=== PATIENT | female | born 1950 | race Caucasian/White ===

== ENCOUNTER 2016-10-27 16:13 | Emergency (ER) | payer MEDICARE, MEDICAID ==
[~2016-10-27] VITALS: Ht 170.2 cm; Wt 68.4 kg
[~2016-10-27 16:13] MED LIST: ACCUPRIL20 MG OR; ALBUTEROL S2.5 MG/.5 NEB; ALDACTONE25 MG PO; ASPIRIN EC325 MG PO; ASPIRIN EC81 MG PO; AUGMENTIN875TAB PO; FUROSEMIDE20 MG PO; HYDROCHLORO25 MG/TAB PO; HYDROCHLOROT12.5 MG OR; K-DUR/KLOR-CON20 MEQ PO; LANOXIN0.25 MG PO; LASIX 40 MG TAB40 MG PO; LEVAQUIN750 MG PO; LEVOFLOXACIN250 M1 PO; LEVOTHYROXIN75 MCG OR; LISINOPRIL20 MG PO; LOPRESSOR 550 MG/TAB PO; LOPRESSOR25 MG PO; LOSARTAN POT50 MG PO; LOSARTAN POTASS25 MG PO; NAPROSYN375 MG PO; NAPROSYN500 MG PO; NICOTINE T21 MG/PATC TD; PANTOPRAZOLE SO40 M1 PO; PERCOCET 5/325M1 TAB PO; PREDNISONE10 MG PO; ROBITUSSIN AC10 ML PO
[2016-10-27 18:34] LABS: HEMATOCRIT 37.7 % (37.0-47.0); IMMATURE GRANULOCYTES 0.3 % (0.0-1.0); MEAN CELL VOLUME 96.9 fL CALC (80.0-100.0); MEAN CORPUSCULAR HGB 30.8 pG CALC (26.0-32.0); MEAN CORPUSCULAR HGB CONC 31.8 g/L CALC (32.0-36.0); NEUT# 10.21 thou/uL (2.00-7.15); RED BLOOD COUNT 3.89 mill/uL (4.20-5.60); RED CELL DISTRI WIDTH 13.1 % (11.5-15.5)
[2016-10-27 18:35] LABS: URINE BILIRUBIN - DIPSTICK NEGATIVE (NEGATIVE); URINE BLOOD DIPSTICK NEGATIVE (NEGATIVE); URINE CLARITY CLEAR; URINE COLOR YELLOW; URINE GLUCOSE - DIPSTICK NEGATIVE (NEGATIVE); URINE KETONE NEGATIVE (NEGATIVE); URINE NITRITE - DIPSTICK NEGATIVE (Negative); URINE PROTEIN - DIPSTICK NEGATIVE (NEG-TRACE); URINE SPECIFIC GRAVITY 1.015; URINE UROBILINOGEN - DIPSTICK 0.2 E.U./dL (0.2)
[2016-10-27 18:40] LABS: ACT PARTIAL THROMBO TIME 26.8 SECONDS (20.0-32.5); PROTHROMBIN TIME 10.8 SECONDS (9.0-12.5)
[2016-10-27 18:40] LABS: URINE LEUK ESTERASE SMALL (NEGATIVE)
[2016-10-27 18:48] LABS: URINE SQUAMOUS EPITHELIAL CELL FEW EPI/hpf (0-FEW)
[2016-10-27 18:49] LABS: ALBUMIN 4.1 g/dL (3.2-5.0); ALKALINE PHOSPHATASE 73 u/l (38-126); ANION GAP 14 (6-22 (CALC)); BILIRUBIN, TOTAL 0.4 mg/dL (0.0-1.4); BUN 8 mg/dL (8-23); BUN/CREATININE RATIO 12 (12-20 (CALC)); CALCIUM 9.4 mg/dL (8.4-10.2); CARBON DIOXIDE 30 mmol/l (22-30); CHLORIDE 102 mmol/l (95-108); CREATININE 0.6 mg/dL (0.5-1.0); GFR > 60 ML/MIN (>=60 (CALC)); GFR FOR AFR.AMER. > 60 ML/MIN (>=60 (CALC)); GLUCOSE 97 mg/dL (82-115); POTASSIUM 3.6 mmol/l (3.5-5.1); SGOT/AST 20 u/l (9-36); SGPT/ALT 20 u/l (11-66); SODIUM 142 mmol/l (137-146)
[2016-10-27 19:02] LABS: MYOGLOBIN 25 ng/mL (0 - 62)
[2016-10-27 20:34] VITALS: BP 164/78
[2016-10-28] MEDS ORDERED: LISINOP/HCTZ1 TA1 PO (12:46)
[2016-10-28] MEDS ORDERED: CIPROFLOXACN500 MG PO (12:46)
== END 2016-10-27 20:35 | disposition left against medical advice (07) ==
LOC: ED 16:13
PROVIDERS: Emergency Medicine
DX: I11.0 Hypertensive heart disease with heart failure (principal); I50.9 Heart failure, unspecified; I25.2 Old myocardial infarction; J44.9 Chronic obstructive pulmonary disease, unspecified; I48.91 Unspecified atrial fibrillation; F17.210 Nicotine dependence, cigarettes, uncomplicated; R07.9 Chest pain, unspecified; R51 Headache

== ENCOUNTER 2016-10-28 12:03 | Emergency (ER) | payer MEDICARE, MEDICAID ==
[~2016-10-28] VITALS: Ht 170.2 cm; Wt 68.0 kg
[2016-10-28] MEDS ORDERED: LISINOP/HCTZ1 TA1 PO (12:46)
[2016-10-28] MEDS ORDERED: CIPROFLOXACN500 MG PO (12:46)
[2016-10-28 12:56] VITALS: BP 162/82
== END 2016-10-28 13:01 | disposition home or self-care (01) ==
LOC: ED 12:03
DX: I10 Essential (primary) hypertension (principal); N39.0 Urinary tract infection, site not specified

== ENCOUNTER 2017-12-29 11:50 | Inpatient (IN) | payer MEDICARE, MEDICAID ==
[~2017-12-29] VITALS: Ht 170.2 cm; Wt 72.8 kg
[2017-12-29] VITALS (11 sets, daily range): BP systolic 120–168; BP diastolic 61–104
[~2017-12-29 11:50] MED LIST changes: +CIPROFLOXACN500 MG PO; +LISINOP/HCTZ1 TA1 PO
[2017-12-29 12:26] LABS: HEMATOCRIT 38.5 % (37.0-47.0); HEMOGLOBIN 12.1 g/dl (12.0-16.0); IMMATURE GRANULOCYTES 0.4 % (0.0-1.0); MEAN CELL VOLUME 94.6 fL CALC (80.0-100.0); MEAN CORPUSCULAR HGB 29.7 pG CALC (26.0-32.0); MEAN CORPUSCULAR HGB CONC 31.4 g/L CALC (32.0-36.0); NEUT# 12.4 thou/uL (2.00-7.15); RED BLOOD COUNT 4.07 mill/uL (4.20-5.60); RED CELL DISTRI WIDTH 13.5 % (11.5-15.5)
[2017-12-29 12:36] LABS: ALBUMIN 3.8 g/dL (3.2-5.0); ALKALINE PHOSPHATASE 108 u/l (38-126); BILIRUBIN, TOTAL 1.2 mg/dL (0.0-1.4); BUN 16 mg/dL (8-23); CARBON DIOXIDE 28 mmol/l (22-30); CHLORIDE 101 mmol/l (95-108); SGPT/ALT 872 u/l (11-66); SODIUM 139 mmol/l (137-146); TOTAL PROTEIN 7.6 g/dL (6.3-8.2)
[2017-12-29 12:38] LABS: ANION GAP 14 (6-22 (CALC)); BUN/CREATININE RATIO 27 (12-20 (CALC)); CREATININE 0.6 mg/dL (0.5-1.0); GFR > 60 ML/MIN (>=60 (CALC)); GFR FOR AFR.AMER. > 60 ML/MIN (>=60 (CALC)); POTASSIUM 4.4 mmol/l (3.5-5.1)
[2017-12-29 12:53] LABS: SGOT/AST 1153 u/l (9-36)
[2017-12-29] MEDS ORDERED: ACETAMINOPHEN500 M1 PO (15:43)
[2017-12-29] MEDS ORDERED: [UNRECOGNIZED DRUG - REMARK] PO (15:50)
[2017-12-29] MEDS ORDERED: HAIR SKIN AND N1 TAB PO (15:55)
[2017-12-29] MEDS ORDERED: BC HEADACH1 PO (16:00)
[2017-12-30] VITALS (13 sets, daily range): BP systolic 111–177; BP diastolic 59–85
[2017-12-30 06:00] LABS: HEMATOCRIT 37.8 % (37.0-47.0); HEMOGLOBIN 11.8 g/dl (12.0-16.0); MEAN CELL VOLUME 95.7 fL CALC (80.0-100.0); MEAN CORPUSCULAR HGB 29.9 pG CALC (26.0-32.0); MEAN CORPUSCULAR HGB CONC 31.2 g/L CALC (32.0-36.0); RED BLOOD COUNT 3.95 mill/uL (4.20-5.60); RED CELL DISTRI WIDTH 13.4 % (11.5-15.5)
[2017-12-30 06:13] LABS: ALBUMIN 3.6 g/dL (3.2-5.0); ALKALINE PHOSPHATASE 96 u/l (38-126); ANION GAP 13 (6-22 (CALC)); BILIRUBIN, TOTAL 0.5 mg/dL (0.0-1.4); BUN 18 mg/dL (8-23); BUN/CREATININE RATIO 27 (12-20 (CALC)); CARBON DIOXIDE 28 mmol/l (22-30); CHLORIDE 101 mmol/l (95-108); CREATININE 0.7 mg/dL (0.5-1.0); GFR > 60 ML/MIN (>=60 (CALC)); GFR FOR AFR.AMER. > 60 ML/MIN (>=60 (CALC)); POTASSIUM 4.4 mmol/l (3.5-5.1); SGOT/AST 678 u/l (9-36); SGPT/ALT 783 u/l (11-66); SODIUM 137 mmol/l (137-146); TOTAL PROTEIN 6.9 g/dL (6.3-8.2)
[2017-12-30 13:56] LABS: BARBITURATES NEGATIVE (NEGATIVE); COCAINE NEGATIVE (NEGATIVE); METHADONE NEGATIVE (NEGATIVE); OXCYCODONE NEGATIVE (NEGATIVE); TETRAHYDROCANNABIONOL NEGATIVE (NEGATIVE); TRICYLIC ANTIDEPRESSANTS NEGATIVE (NEGATIVE)
[2017-12-31] VITALS (8 sets, daily range): BP systolic 129–171; BP diastolic 78–98
[2017-12-31 05:35] LABS: CREATININE 1.1 mg/dL (0.5-1.0); POTASSIUM 4.1 mmol/l (3.5-5.1)
[2017-12-31 06:01] LABS: HEMATOCRIT 37.9 % (37.0-47.0); HEMOGLOBIN 11.6 g/dl (12.0-16.0); MEAN CELL VOLUME 97.9 fL CALC (80.0-100.0); MEAN CORPUSCULAR HGB CONC 30.6 g/L CALC (32.0-36.0); RED BLOOD COUNT 3.87 mill/uL (4.20-5.60); RED CELL DISTRI WIDTH 13.7 % (11.5-15.5)
[2017-12-31 07:03] LABS: ALBUMIN 3.4 g/dL (3.2-5.0); BILIRUBIN, TOTAL 0.5 mg/dL (0.0-1.4); TOTAL PROTEIN 6.7 g/dL (6.3-8.2)
== END 2017-12-31 15:52 | disposition left against medical advice (07) | DRG 193 ==
LOC: ED 11:50 → ED-I 13:53 → ED 17:23 → ED-I 17:24 → ICU 17:24 → ED-I 22:21 → ICU 12-30 06:06
PROVIDERS: Emergency Medicine; ADMIT Internal Medicine; ATTEND Internal Medicine
PROC: 3E0234Z Introduction of Serum, Toxoid and Vaccine into Muscle, Percutaneous Approach (ICD-10-PCS; principal; 2017-12-30)
DX: J18.9 Pneumonia, unspecified organism (principal); J96.21 Acute and chronic respiratory failure with hypoxia; J96.22 Acute and chronic respiratory failure with hypercapnia; J44.0 Chronic obstructive pulmonary disease with (acute) lower respiratory infection; I42.9 Cardiomyopathy, unspecified; J44.1 Chronic obstructive pulmonary disease with (acute) exacerbation; I11.0 Hypertensive heart disease with heart failure; I50.9 Heart failure, unspecified; I25.10 Atherosclerotic heart disease of native coronary artery without angina pectoris; T39.1X1A Poisoning by 4-Aminophenol derivatives, accidental (unintentional), initial encounter; K71.10 Toxic liver disease with hepatic necrosis, without coma; I48.2 Chronic atrial fibrillation; F10.10 Alcohol abuse, uncomplicated; F17.210 Nicotine dependence, cigarettes, uncomplicated; I25.2 Old myocardial infarction; M19.90 Unspecified osteoarthritis, unspecified site; Z23 Encounter for immunization; Z90.2 Acquired absence of lung [part of]; Z91.14 Patient's other noncompliance with medication regimen
CPT/HCPCS: J1650

== ENCOUNTER 2018-01-02 21:36 | Inpatient (IN) | payer MEDICARE, MEDICAID ==
[~2018-01-02] VITALS: Ht 170.2 cm; Wt 70.4 kg
[~2018-01-02 21:36] MED LIST changes: +ACETAMINOPHEN500 M1 PO; +BC HEADACH1 PO; +HAIR SKIN AND N1 TAB PO; +[UNRECOGNIZED DRUG - REMARK] PO
[2018-01-02 22:12] LABS: HEMATOCRIT 39.8 % (37.0-47.0); IMMATURE GRANULOCYTES 0.8 % (0.0-1.0); MEAN CELL VOLUME 97.5 fL CALC (80.0-100.0); MEAN CORPUSCULAR HGB 29.4 pG CALC (26.0-32.0); MEAN CORPUSCULAR HGB CONC 30.2 g/L CALC (32.0-36.0); NEUT# 14.12 thou/uL (2.00-7.15); RED BLOOD COUNT 4.08 mill/uL (4.20-5.60); RED CELL DISTRI WIDTH 14.6 % (11.5-15.5)
[2018-01-02 23:01] LABS: ALBUMIN 3.9 g/dL (3.2-5.0); ALKALINE PHOSPHATASE 139 u/l (38-126); ANION GAP 14 (6-22 (CALC)); BILIRUBIN, TOTAL 0.6 mg/dL (0.0-1.4); BUN 24 mg/dL (8-23); BUN/CREATININE RATIO 29 (12-20 (CALC)); CARBON DIOXIDE 28 mmol/l (22-30); CHLORIDE 102 mmol/l (95-108); CREATININE 0.8 mg/dL (0.5-1.0); GFR > 60 ML/MIN (>=60 (CALC)); GFR FOR AFR.AMER. > 60 ML/MIN (>=60 (CALC)); POTASSIUM 3.6 mmol/l (3.5-5.1); SGOT/AST 92 u/l (9-36); SGPT/ALT 351 u/l (11-66); SODIUM 141 mmol/l (137-146); TOTAL PROTEIN 7.6 g/dL (6.3-8.2)
[2018-01-02 23:13] LABS: MYOGLOBIN 50 ng/mL (0 - 62)
[2018-01-02 23:14] LABS: URINE BILIRUBIN - DIPSTICK NEGATIVE (NEGATIVE); URINE BLOOD DIPSTICK NEGATIVE (NEGATIVE); URINE CLARITY CLEAR; URINE COLOR COLORLESS; URINE GLUCOSE - DIPSTICK NEGATIVE (NEGATIVE); URINE KETONE NEGATIVE (NEGATIVE); URINE LEUK ESTERASE NEGATIVE (NEGATIVE); URINE NITRITE - DIPSTICK NEGATIVE (Negative); URINE PROTEIN - DIPSTICK NEGATIVE (NEG-TRACE); URINE SPECIFIC GRAVITY <=1.005; URINE UROBILINOGEN - DIPSTICK 0.2 E.U./dL (0.2)
[2018-01-02 23:18] LABS: BARBITURATES NEGATIVE (NEGATIVE); COCAINE NEGATIVE (NEGATIVE); METHADONE NEGATIVE (NEGATIVE); OXCYCODONE NEGATIVE (NEGATIVE); TETRAHYDROCANNABIONOL NEGATIVE (NEGATIVE); TRICYLIC ANTIDEPRESSANTS NEGATIVE (NEGATIVE)
[2018-01-03] VITALS (18 sets, daily range): BP systolic 138–197; BP diastolic 68–100
[2018-01-04] VITALS (7 sets, daily range): BP systolic 122–156; BP diastolic 67–98
[2018-01-04 05:01] LABS: HEMATOCRIT 43.7 % (37.0-47.0); HEMOGLOBIN 13.7 g/dl (12.0-16.0); MEAN CELL VOLUME 93.4 fL CALC (80.0-100.0); MEAN CORPUSCULAR HGB 29.3 pG CALC (26.0-32.0); MEAN CORPUSCULAR HGB CONC 31.4 g/L CALC (32.0-36.0); RED BLOOD COUNT 4.68 mill/uL (4.20-5.60); RED CELL DISTRI WIDTH 14.2 % (11.5-15.5)
[2018-01-04 05:42] LABS: ALBUMIN 3.3 g/dL (3.2-5.0); ALKALINE PHOSPHATASE 118 u/l (38-126); BILIRUBIN, TOTAL 0.5 mg/dL (0.0-1.4); BUN 29 mg/dL (8-23); BUN/CREATININE RATIO 32 (12-20 (CALC)); CREATININE 0.9 mg/dL (0.5-1.0); GFR > 60 ML/MIN (>=60 (CALC)); GFR FOR AFR.AMER. > 60 ML/MIN (>=60 (CALC)); SGOT/AST 42 u/l (9-36); SGPT/ALT 218 u/l (11-66); SODIUM 138 mmol/l (137-146); TOTAL PROTEIN 6.5 g/dL (6.3-8.2)
[2018-01-04 05:49] LABS: MAGNESIUM 1.1 mg/dL (1.6-2.3)
[2018-01-04 06:05] LABS: POTASSIUM 2.6 mmol/l (3.5-5.1)
[2018-01-04 06:06] LABS: ANION GAP 12 (6-22 (CALC)); CARBON DIOXIDE 50 mmol/l (22-30); CHLORIDE 79 mmol/l (95-108)
[2018-01-04 07:01] LABS: BUN 31 mg/dL (8-23); BUN/CREATININE RATIO 34 (12-20 (CALC)); CHLORIDE 80 mmol/l (95-108); CREATININE 0.9 mg/dL (0.5-1.0); GFR > 60 ML/MIN (>=60 (CALC)); GFR FOR AFR.AMER. > 60 ML/MIN (>=60 (CALC)); POTASSIUM 2.8 mmol/l (3.5-5.1); SODIUM 138 mmol/l (137-146)
[2018-01-04 07:08] LABS: ANION GAP 15 (6-22 (CALC))
[2018-01-04 07:18] LABS: CARBON DIOXIDE 46 mmol/l (22-30)
[2018-01-05] VITALS (9 sets, daily range): BP systolic 147–211; BP diastolic 72–134
[2018-01-05 07:02] LABS: HEMATOCRIT 42.6 % (37.0-47.0); HEMOGLOBIN 13.3 g/dl (12.0-16.0); MEAN CELL VOLUME 94.7 fL CALC (80.0-100.0); MEAN CORPUSCULAR HGB 29.6 pG CALC (26.0-32.0); MEAN CORPUSCULAR HGB CONC 31.2 g/L CALC (32.0-36.0); RED BLOOD COUNT 4.5 mill/uL (4.20-5.60); RED CELL DISTRI WIDTH 14.4 % (11.5-15.5)
[2018-01-05 07:13] LABS: BUN 26 mg/dL (8-23); BUN/CREATININE RATIO 39 (12-20 (CALC)); CHLORIDE 85 mmol/l (95-108); CREATININE 0.7 mg/dL (0.5-1.0); GFR > 60 ML/MIN (>=60 (CALC)); GFR FOR AFR.AMER. > 60 ML/MIN (>=60 (CALC)); POTASSIUM 2.6 mmol/l (3.5-5.1); SODIUM 139 mmol/l (137-146)
[2018-01-05 07:21] LABS: MAGNESIUM 1.6 mg/dL (1.6-2.3)
[2018-01-05 07:22] LABS: ANION GAP 16 (6-22 (CALC)); CARBON DIOXIDE 41 mmol/l (22-30)
[2018-01-05 13:31] LABS: POTASSIUM 3.2 mmol/l (3.5-5.1)
[2018-01-06] VITALS (15 sets, daily range): BP systolic 133–179; BP diastolic 62–114
[2018-01-06 05:07] LABS: HEMATOCRIT 47.5 % (37.0-47.0); MEAN CELL VOLUME 94.1 fL CALC (80.0-100.0); MEAN CORPUSCULAR HGB 29.7 pG CALC (26.0-32.0); MEAN CORPUSCULAR HGB CONC 31.6 g/L CALC (32.0-36.0); RED BLOOD COUNT 5.05 mill/uL (4.20-5.60); RED CELL DISTRI WIDTH 14.3 % (11.5-15.5)
[2018-01-06 05:22] LABS: BUN 22 mg/dL (8-23); BUN/CREATININE RATIO 35 (12-20 (CALC)); CHLORIDE 88 mmol/l (95-108); CREATININE 0.6 mg/dL (0.5-1.0); GFR > 60 ML/MIN (>=60 (CALC)); GFR FOR AFR.AMER. > 60 ML/MIN (>=60 (CALC)); MAGNESIUM 1.6 mg/dL (1.6-2.3); POTASSIUM 3.1 mmol/l (3.5-5.1); SODIUM 139 mmol/l (137-146)
[2018-01-06 05:29] LABS: ANION GAP 15 (6-22 (CALC)); CARBON DIOXIDE 39 mmol/l (22-30)
[2018-01-06 17:02] LABS: HEMATOCRIT 47.9 % (37.0-47.0); HEMOGLOBIN 14.5 g/dl (12.0-16.0); MEAN CORPUSCULAR HGB 29.1 pG CALC (26.0-32.0); MEAN CORPUSCULAR HGB CONC 30.3 g/L CALC (32.0-36.0); RED BLOOD COUNT 4.99 mill/uL (4.20-5.60); RED CELL DISTRI WIDTH 14.5 % (11.5-15.5)
[2018-01-07 00:25] VITALS: BP 156/91
[2018-01-07 02:25] VITALS: BP 109/69
[2018-01-07 04:23] VITALS: BP 136/78
[2018-01-07 05:11] LABS: HEMATOCRIT 49.4 % (37.0-47.0); HEMOGLOBIN 15.3 g/dl (12.0-16.0); MEAN CORPUSCULAR HGB 29.4 pG CALC (26.0-32.0); RED BLOOD COUNT 5.2 mill/uL (4.20-5.60); RED CELL DISTRI WIDTH 14.4 % (11.5-15.5)
[2018-01-07 05:28] LABS: ALBUMIN 3.2 g/dL (3.2-5.0); ALKALINE PHOSPHATASE 146 u/l (38-126); BILIRUBIN, TOTAL 0.4 mg/dL (0.0-1.4); BUN 22 mg/dL (8-23); BUN/CREATININE RATIO 32 (12-20 (CALC)); CHLORIDE 89 mmol/l (95-108); CREATININE 0.7 mg/dL (0.5-1.0); GFR > 60 ML/MIN (>=60 (CALC)); GFR FOR AFR.AMER. > 60 ML/MIN (>=60 (CALC)); MAGNESIUM 1.2 mg/dL (1.6-2.3); POTASSIUM 3.2 mmol/l (3.5-5.1); SGOT/AST 19 u/l (9-36); SGPT/ALT 86 u/l (11-66); SODIUM 137 mmol/l (137-146); TOTAL PROTEIN 6.3 g/dL (6.3-8.2)
[2018-01-07 05:29] LABS: ANION GAP 11 (6-22 (CALC))
[2018-01-07 05:30] LABS: CARBON DIOXIDE 40 mmol/l (22-30)
[2018-01-07 06:56] VITALS: BP 153/87
[2018-01-07 09:21] VITALS: BP 162/78
[2018-01-07] MEDS ORDERED: PREDNISONE10 MG PO (11:05)
[2018-01-07] MEDS ORDERED: ASPIRIN EC325 MG PO (11:05)
[2018-01-07] MEDS ORDERED: ATENOLOL50 MG PO (11:05)
[2018-01-07] MEDS ORDERED: LASIX 40 MG40 MG/TAB PO (11:05)
[2018-01-07] MEDS ORDERED: ATORVASTATIN CA10 MG PO (11:05)
[2018-01-07] MEDS ORDERED: IPRATROPIU0.5 MG/3 M IN (11:05)
[2018-01-07] MEDS ORDERED: K-DUR/KLOR-CON20 MEQ PO (11:05)
[2018-01-07] MEDS ORDERED: LISINOPRIL20 M1 PO (11:05)
[2018-01-07] MEDS ORDERED: DOXYCYCL HYC100 MG PO (11:22)
[2018-01-07] MEDS ORDERED: PROAIR HFA108 MCG/AC IN (11:30)
[2018-01-07] MEDS ORDERED: RESTORIL15 MG PO (11:30)
[2018-01-07 13:03] VITALS: BP 148/70
== END 2018-01-07 13:22 | disposition home or self-care (01) | DRG 291 ==
LOC: ED 21:36 → ED-I 22:56 → ED 01-03 00:08 → ICU 01-03 00:09
PROVIDERS: Emergency Medicine; ADMIT Internal Medicine; ATTEND Internal Medicine
PROC: 0T9B70Z Drainage of Bladder with Drainage Device, Via Natural or Artificial Opening (ICD-10-PCS; principal; 2018-01-02)
DX: I11.0 Hypertensive heart disease with heart failure (principal); J18.9 Pneumonia, unspecified organism; J96.21 Acute and chronic respiratory failure with hypoxia; J96.22 Acute and chronic respiratory failure with hypercapnia; J44.0 Chronic obstructive pulmonary disease with (acute) lower respiratory infection; J44.1 Chronic obstructive pulmonary disease with (acute) exacerbation; E87.3 Alkalosis; I50.23 Acute on chronic systolic (congestive) heart failure; I48.2 Chronic atrial fibrillation; E87.6 Hypokalemia; E83.42 Hypomagnesemia; R73.9 Hyperglycemia, unspecified; T38.0X5A Adverse effect of glucocorticoids and synthetic analogues, initial encounter; I42.9 Cardiomyopathy, unspecified; F17.210 Nicotine dependence, cigarettes, uncomplicated; M19.90 Unspecified osteoarthritis, unspecified site; Z91.14 Patient's other noncompliance with medication regimen; Z90.2 Acquired absence of lung [part of]
CPT/HCPCS: J1650; J2060; J3475

== ENCOUNTER 2018-04-07 21:58 | Inpatient (IN) | payer MEDICARE, MEDICAID ==
[~2018-04-07] VITALS: Ht 165.1 cm; Wt 64.0 kg
[~2018-04-07 21:58] MED LIST changes: +ATENOLOL50 MG PO; +ATORVASTATIN CA10 MG PO; +DOXYCYCL HYC100 MG PO; +IPRATROPIU0.5 MG/3 M IN; +LASIX 40 MG40 MG/TAB PO; +LISINOPRIL20 M1 PO; +PROAIR HFA108 MCG/AC IN; +RESTORIL15 MG PO
--- NOTE | 2018-04-07 21:58 | NUR ---
TAKEN TO ROOM VIA W/C. PT SOB WHILE IN W/C. RR 50
[2018-04-07 22:45] LABS: HEMATOCRIT 48.2 % (37.0-47.0); HEMOGLOBIN 15.4 g/dl (12.0-16.0); IMMATURE GRANULOCYTES 0.9 % (0.0-5.0); MEAN CELL VOLUME 89.6 fL CALC (80.0-100.0); MEAN CORPUSCULAR HGB 28.6 pG CALC (26.0-32.0); NEUT# 24.28 thou/uL (2.00-7.15); RED BLOOD COUNT 5.38 mill/uL (4.20-5.60); RED CELL DISTRI WIDTH 13.6 % (11.5-15.5)
[2018-04-07 23:03] LABS: ALKALINE PHOSPHATASE 141 u/l (38-126); ANION GAP 16 (6-22 (CALC)); BILIRUBIN, TOTAL 0.8 mg/dL (0.0-1.4); BUN 18 mg/dL (8-23); BUN/CREATININE RATIO 25 (12-20 (CALC)); CARBON DIOXIDE 32 mmol/l (22-30); CHLORIDE 95 mmol/l (95-108); CREATININE 0.7 mg/dL (0.5-1.0); GFR > 60 ML/MIN (>=60 (CALC)); GFR FOR AFR.AMER. > 60 ML/MIN (>=60 (CALC)); POTASSIUM 3.4 mmol/l (3.5-5.1); SGOT/AST 25 u/l (9-36); SODIUM 139 mmol/l (137-146)
[2018-04-07 23:07] LABS: ALBUMIN 3.9 g/dL (3.2-5.0); TOTAL PROTEIN 7.6 g/dL (6.3-8.2)
[2018-04-07 23:16] LABS: MYOGLOBIN 41 ng/mL (0 - 62)
[2018-04-07 23:20] LABS: URINE BILIRUBIN - DIPSTICK NEGATIVE (NEGATIVE); URINE BLOOD DIPSTICK TRACE-INTACT (NEGATIVE); URINE COLOR YELLOW; URINE GLUCOSE - DIPSTICK NEGATIVE (NEGATIVE); URINE KETONE NEGATIVE (NEGATIVE); URINE LEUK ESTERASE NEGATIVE (NEGATIVE); URINE NITRITE - DIPSTICK NEGATIVE (Negative); URINE PH 6.5 (4.5-8.0); URINE PROTEIN - DIPSTICK TRACE mg/dL (NEG-TRACE); URINE UROBILINOGEN - DIPSTICK 0.2 E.U./dL (0.2)
[2018-04-07 23:22] LABS: BARBITURATES NEGATIVE (NEGATIVE); COCAINE NEGATIVE (NEGATIVE); METHADONE NEGATIVE (NEGATIVE); OXCYCODONE NEGATIVE (NEGATIVE); TETRAHYDROCANNABIONOL NEGATIVE (NEGATIVE); TRICYLIC ANTIDEPRESSANTS NEGATIVE (NEGATIVE); URINE CLARITY CLEAR
--- NOTE | 2018-04-07 23:30 | NUR ---
PT RELATED BREATHING IMPROVED.
[2018-04-08] VITALS (18 sets, daily range): BP systolic 71–141; BP diastolic 41–88
--- NOTE | 2018-04-08 00:34 | NUR ---
CARDIZEM GTT INCREASED TO 10MG/HR PER DR LOUIS.
--- NOTE | 2018-04-08 01:00 | NUR ---
PT SLEEPING, RESPONDED TO VERBAL STIMULI. BREATHING IMPROVED. CALL [facility] IN REACH.
--- NOTE | 2018-04-08 02:45 | NUR ---
REPORT CALLED TO RENAE LAGOS
--- NOTE | 2018-04-08 02:50 | NUR ---
PT. ARRIVES VIA STRETCHER FROM ER. AMBULATORY FROM ER STRETCHER TO ICU BED WITHOUT ASSISTANCE. ZITHROMAX DRIP INFUSING AND CARDIZEM DRIP INFUSING AT 10CC/HR A-FIB IN THE 90-110'S ON ARRVAL. SPO2 IS 88% ON RA AFTER AMBULATION. SKIN WARM AND DRY. AFEBRILE. EXPLAINED CALL LIGHT AND PLAN OF CARE FOR TONIGHT. RESPS EVEN AND UNLABORED. LUNGS CTA. BP STABLE 130'S SYSTOLIC. PT. REPORTS LAST BM YESTERDAY, SEVERAL AND SOFT IN NATURE. DENIES PAIN. PT. PLACED BACK ON 2L VIA NC. STATES SHE CONTINUES TO SMOKE ABOUT 1 PPD. ALSO REPORTS OCCASIONAL METH USE WHEN SHE DOESN'T FEEL WELL. STATES LAST USE WAS 3 DAYS AGO. NO DISTRESS. WILL CONTINUE TO MONITOR.
--- NOTE | 2018-04-08 02:55 | NUR ---
PT TO ICU 3 VIA STRETCHER WITH MONITOR, IV PUMP, OXYGEN, RN. PT COND STABLE.
--- NOTE | 2018-04-08 03:23 | NUR ---
PT. PROVIDED WITH WATER AND A TURKEY SANDWICH AT THIS TIME. SITTING UP IN BED IN NO DISTRESS. REMAINS ON CARDIZEM DRIP AT 10 CC/HR. ZITHROMAX INFUSED. BP STABLE. REMAINS AFIB IN THE 100-110'S.
--- NOTE | 2018-04-08 04:15 | NUR ---
PT. RESTING IN BED ON RT. SIDE IN ON DISTRESS. RESPS EVEN AND UNLABORED. EYES CLOSED. VSS. CARDIZEM DRIP INFUSING WITHOUT REACTION.
--- NOTE | 2018-04-08 05:25 | NUR ---
PT. WITH NAUSEA AT THIS TIME. SCANT EMESIS NOTED. PT. PROVIDED WITH COOL WASH CLOTH AND WILL MEDICATE ORDERED. PT. REMAINS ON CARDIZEM DRIP AT 10 MG/HR. PT. REMAINS IN A-FIB WITH RATE IN THE 80-100'S.
--- NOTE | 2018-04-08 05:48 | NUR ---
NEB TREATMENT IN PROGRESS AT THIS TIME.
--- NOTE | 2018-04-08 05:53 | NUR ---
PT. ASSISTED TO BSC AT THIS TIME. DENIES OTHER COMPLAINTS OR NEEDS.
--- NOTE | 2018-04-08 07:30 | NUR ---
PT RESTING QUIETLY IN BED. IV CARDIZEM DRIP INFUSING WELL AT 10ML/HR. WILL CONTINUE TO MONITOR
--- NOTE | 2018-04-08 08:00 | NUR ---
PT FINISHING WITH BREAKFAST. ASSESMENT COMPLETED AT THIS TIME(SEE INTERVENTIONS). LUNG SOUNDS CLEAR. HR IRREGULAR READING 86 ON THE MONITOR. NO EDEMA NOTED. #22 IN THE HAND FLUSHES WELL. #20 RAC INFUSING WELL. PT VOICING NO COMPLAINTS. WILL CONTINUE TO MONITOR.
--- NOTE | 2018-04-08 10:00 | NUR ---
PT SITING ON THE SIDE OF THE BED. PRODUCTIVE COUGH NOTED. VOIVING NO COMPLAINTS AT THIS TIME. WILL CONTINUE TO MONITOR.
[2018-04-08 10:45] LABS: BARBITURATES NEGATIVE (NEGATIVE); COCAINE NEGATIVE (NEGATIVE); METHADONE NEGATIVE (NEGATIVE); OXCYCODONE NEGATIVE (NEGATIVE); TETRAHYDROCANNABIONOL NEGATIVE (NEGATIVE); TRICYLIC ANTIDEPRESSANTS NEGATIVE (NEGATIVE)
--- NOTE | 2018-04-08 11:17 | NUR ---
PT STATES SHE IS NAUSEOUS. DRY HEAVING. MEDICATED PER ORDER FOR NAUSEA.
--- NOTE | 2018-04-08 11:38 | NUR ---
DR HOPKINS IN TO SEE PT. INSTRUCTS SENIOR WATER/WASTEWATER ENGINEER TO WEAN PT OFF OF CARDIZEM DRIP TO 5 ML/HR. AND CHECK AGAIN IN 30 MINS. PT UP EATING LUNCH ON SIDE OF BED. WILL CONTINUE TO MONITOR.
--- NOTE | 2018-04-08 12:00 | NUR ---
SPOKE WITH HOSPICE VIA TELEPHONE, PER PATRICIO [facility] IS AGREEABLE TO HAVE HOSPICE ON BOARD FOR COMFORT.
--- NOTE | 2018-04-08 12:18 | NUR ---
TELEMETRY AFIB RATE IN THE 50S. BP PER MONITOR 81/51 VERIFIED BY MANUAL 82/50. CARDIZEM STOPPED. PT ASYMTAMATIC, "FEELS BLAH". WILL MONITOR CLOSELY.
--- NOTE | 2018-04-08 13:38 | NUR ---
PT REMAINS RATE 45-50S ON THE MONITOR. BP REMAINS ASYMPTOMATICALLY HYPOTENSIVE 74/48. RT AT BEDSIDE FOR NEB TREATMENT. CALL [facility] IN REACH. WILL CONTINUE TO MONITOR.
--- NOTE | 2018-04-08 15:30 | NUR ---
PT CONTINUOUSLY UP TO BEDSIDE COMODE FOR BOWEL MOVEMENT AND PT HAVING EMESIS.
[2018-04-08 15:32] LABS: CHOLESTEROL HDL RATIO 3.3 (<4.4 (CALC))
[2018-04-08 15:42] LABS: C. DIFFICILE TOXIN A&B NEGATIVE (NEGATIVE)
--- NOTE | 2018-04-08 15:46 | NUR ---
PT REFUSING LOVENOX AT THIS TIME.
--- NOTE | 2018-04-08 16:00 | NUR ---
PT UP TO BS COMODE TO WASH UP AND USE RESTROM
--- NOTE | 2018-04-08 16:58 | NUR ---
pt provided with spencer remi and educated regarding changed diet relate to continued vomiting today. Verbalizes understanding.
--- NOTE | 2018-04-08 19:30 | NUR ---
PT SITTING UP IN BED VISITING WITH DAUGHTER. PT ASKED THAT I SHOW CXR WITH DAUGHTER. SHOWED CXR TO DAUGHTER. SHIFT ASSESSMENT COMPLETED AT THIS TIME. IV PATENT X1. PLAN OF CARE REVIEWED. PT VERBALIZED UNDERSTANDING. CALL LIGHT IN REACH. WILL CONTINUE TO MONITOR.
--- NOTE | 2018-04-08 21:04 | NUR ---
evening med passed per mar.ativan given per mar for rest. call light in reach. will continue to monitor.
[2018-04-09] VITALS (7 sets, daily range): BP systolic 99–157; BP diastolic 43–77
--- NOTE | 2018-04-09 01:45 | NUR ---
PT RESTING IN BED WITH EYES CLOSED. RESP ARE EVEN AND UNLABORED. NO DISTRESS NOTED. CALL LIGHT IN REACH. WILL CONTINUE TO MONITOR.
--- NOTE | 2018-04-09 01:46 | NUR ---
PT RESTING IN BED WITH EYES CLOSED. RESP ARE EVEN AND UNLABORED. NO DISTRESS NOTED. CALL LIGHT IN REACH. WILL CONTINUE TO MONITOR.
--- NOTE | 2018-04-09 03:52 | NUR ---
pt awake in bed. pt removes oxygen and o2 sats drop to 86%. instructed pt to place o2 back on. call light in reach. will continue to monitor.
--- NOTE | 2018-04-09 05:49 | NUR ---
LAB IN TO COMPLETE AM LABS. PT SITTING UP IN BED WATCHING TV. CALL LIGHT IN REACH. WILL CONTINUE TO MONITOR.
--- NOTE | 2018-04-09 06:05 | NUR ---
PT CONSISTENTLY UP AND DOWN IN BED AND OUT OF BED. PT CONTINUOUSLY YELLING OUT TO NURSES STATION ABOUT FOOD. EXPLAINED THAT SHE IS STILL ON A CLEAR LIQUID UNTIL EVALUATED.
[2018-04-09 06:23] LABS: HEMATOCRIT 46.2 % (37.0-47.0); HEMOGLOBIN 14.5 g/dl (12.0-16.0); IMMATURE GRANULOCYTES 0.6 % (0.0-5.0); MEAN CELL VOLUME 89.5 fL CALC (80.0-100.0); MEAN CORPUSCULAR HGB 28.1 pG CALC (26.0-32.0); MEAN CORPUSCULAR HGB CONC 31.4 g/L CALC (32.0-36.0); NEUT# 21.24 thou/uL (2.00-7.15); RED BLOOD COUNT 5.16 mill/uL (4.20-5.60); RED CELL DISTRI WIDTH 13.6 % (11.5-15.5)
[2018-04-09 07:10] LABS: CREATININE 1.4 mg/dL (0.5-1.0); POTASSIUM 3.9 mmol/l (3.5-5.1)
--- NOTE | 2018-04-09 07:25 | NUR ---
PT ALERT AND ORIENTED; RESTING IN BED; OFFERS NO COMPLAINTS NOP EMESIS SINCE YESTERDAY PER REPORT, DIET CHANGED BACK TO CARDIAC PREVIOUSLY DISCUSSED; PT DENIES HAVING BM SINCE YESTERDAY WHEN SHE HAD MULTIPLE. AM ASSESSMENT COMPLETED; SEE INTERVENTIONS; SKIN WARM DRY AND INTACT; PT NEEDS INTERMITTENT REMINDERS TO KEEP OXYGEN ON; PT DENIES USING O2 AT HOME; MOIST COUGH NOTED INTERMITTENTLY; PRODUCTIVE OF THICK YELLOW GREEN SPUTUM (SPECIMEN SENT FOR CULTURE); ABD SOFT AND BS ACTIVE; TRACE PEDAL EDEMA NOTED; COMFORT MEASURES PROVIDED; SAFETY MEASURES REINFORCED; TELE CONTINUES TO READ A FIB RATE CONTROLLED INTHE 80-90'S; CALL [facility] WITHIN REACH; WILL CONTINUE TO MONITOR.
--- NOTE | 2018-04-09 07:45 | NUR ---
SET UP ASSIST PROVIDED FOR AM MEAL; O2 REMAINS ON AT 1.5 L VIA NC; WILL CONTINUE TO MONITOR.
--- NOTE | 2018-04-09 08:22 | NUR ---
PT REQUESTING ATIVAN FOR ANXIETY RELATED TO NOT SMOKING AND POOR SLEEP LAST PM, MEDICATED ORDERED, ANYI CONTINUE TO MONITOR.
--- NOTE | 2018-04-09 08:34 | NUR ---
IVF STARTED PER ORDER , PT EDUCATED REGARDING THE IMPORTANCE OF FOLLOW UP WITH CARDIOLOGY, TAKING MEDICATIONS ORDERED AND QUITTING SMOKING, PT ADMITS TO NON COMPLIANCE WITH ABOVE THINGS. DISCUSSED PLAN OF CARE INCLUDING POSSIBLE D/C LATER THIS AFTERNOON, CALL [facility] WITHIN REACH, WILL CONTINUE TO MONITOR.
--- NOTE | 2018-04-09 09:46 | NUR ---
pt resting in bed, offers no new complaints, IVF continue as ordered, call cummings within reach. Denies N/V since consuming am meal.
--- NOTE | 2018-04-09 10:14 | NUR ---
PT DOZES INTERMINTTENLY, OFFERS NO NEW COMPLAINTS, NO S/S OF DISTRESS OR DISCOMFORT NOTED; CALL [facility] WITHIN REACH
--- NOTE | 2018-04-09 11:47 | NUR ---
set up assist provided for afternoon meal, IVF continue at prescribed rate w/o incident, pt requires reminders to keep O2 on, sats drop to 88-90% when on room air, no sob or distress noted, call cummings within reach
--- NOTE | 2018-04-09 12:02 | NUR ---
pt tolerating diet well, continues to deny N/V, call cummings within reach. Will continue to monitor.
[2018-04-09] MEDS ORDERED: ASPIRIN EC325 MG PO (12:11)
[2018-04-09] MEDS ORDERED: PREDNISONE10 MG PO (12:11)
[2018-04-09] MEDS ORDERED: ATENOLOL50 MG PO (12:11)
[2018-04-09] MEDS ORDERED: PROAIR HFA108 MCG/AC IN (12:11)
[2018-04-09] MEDS ORDERED: ZITHROMAX500 MG PO (12:17)
[2018-04-09] MEDS ORDERED: AUGMENTIN875TAB PO (12:17)
--- NOTE | 2018-04-09 12:59 | NUR ---
pt ate 100% of afternoon meal, requesting "sweet snack", ice cream provided with sacha crackers, pt aware of planned d/c later today, call cummings within reach, will continue to monitor.
--- NOTE | 2018-04-09 14:11 | NUR ---
CASE MGMT INTO SEE PAITNET REGARDIN HH SELECTION. PT REFUSED HOME HEALTH. D/C INSTRUCTIONS UPDATED ACCORDINGLY.
--- NOTE | 2018-04-09 15:40 | NUR ---
PT DRESSED, IV OUT WITHOUT INCIDENT,AWAITING DAUGHTER FOR TRANSPORT HOME EDUCATED REGARDING MEDICATION REGIMEN, FOLLOW UP WITH PHYSICIANS AND BEING COMPLIANT WITH MEDICATIONS, VERBALIZES UNDERSTANDING, PRESCRIPTIONS FOR HOME MEDICATIONS PROVIDED TO PATIENT.
--- NOTE | 2018-04-09 16:00 | NUR ---
Discharge instructions given. Patient verbalizes understanding of same. Discharged in stable condition via Wheelchair to Home with family. All belongings sent with pt.
== END 2018-04-09 16:00 | disposition home or self-care (01) | DRG 193 ==
LOC: ED 21:58 → ED-I 23:30 → ED 04-08 01:25 → ICU 04-08 01:26
PROVIDERS: Emergency Medicine; Nurse Practitioner Family; ADMIT Internal Medicine; ATTEND Internal Medicine
DX: J18.9 Pneumonia, unspecified organism (principal); J96.21 Acute and chronic respiratory failure with hypoxia; J44.1 Chronic obstructive pulmonary disease with (acute) exacerbation; J44.0 Chronic obstructive pulmonary disease with (acute) lower respiratory infection; I50.22 Chronic systolic (congestive) heart failure; I11.0 Hypertensive heart disease with heart failure; F17.210 Nicotine dependence, cigarettes, uncomplicated; I48.2 Chronic atrial fibrillation; T50.906A Underdosing of unspecified drugs, medicaments and biological substances, initial encounter; F15.10 Other stimulant abuse, uncomplicated; E87.6 Hypokalemia; I25.5 Ischemic cardiomyopathy; Z91.128 Patient's intentional underdosing of medication regimen for other reason; Z90.2 Acquired absence of lung [part of]
CPT/HCPCS: J1650

== ENCOUNTER 2018-05-12 12:42 | Inpatient (IN) | payer MEDICARE, MEDICAID ==
[2018-05-12] VITALS (7 sets, daily range): BP systolic 134–174; BP diastolic 68–93
[~2018-05-12] VITALS: Ht 165.1 cm; Wt 68.7 kg
[~2018-05-12 12:42] MED LIST changes: +ZITHROMAX500 MG PO
[2018-05-12 13:09] LABS: HEMOGLOBIN 13.4 g/dl (12.0-16.0); IMMATURE GRANULOCYTES 0.4 % (0.0-5.0); MEAN CELL VOLUME 90.1 fL CALC (80.0-100.0); MEAN CORPUSCULAR HGB 28.8 pG CALC (26.0-32.0); MEAN CORPUSCULAR HGB CONC 31.9 g/L CALC (32.0-36.0); NEUT# 9.05 thou/uL (2.00-7.15); RED BLOOD COUNT 4.66 mill/uL (4.20-5.60); RED CELL DISTRI WIDTH 14.7 % (11.5-15.5)
[2018-05-12 13:34] LABS: ALBUMIN 3.6 g/dL (3.2-5.0); ALKALINE PHOSPHATASE 186 u/l (38-126); ANION GAP 16 (6-22 (CALC)); BUN 16 mg/dL (8-23); BUN/CREATININE RATIO 18 (12-20 (CALC)); CARBON DIOXIDE 33 mmol/l (22-30); CHLORIDE 99 mmol/l (95-108); CREATININE 0.9 mg/dL (0.5-1.0); GFR > 60 ML/MIN (>=60 (CALC)); GFR FOR AFR.AMER. > 60 ML/MIN (>=60 (CALC)); TOTAL PROTEIN 6.8 g/dL (6.3-8.2)
[2018-05-12 13:35] LABS: SGOT/AST 162 u/l (9-36); SODIUM 144 mmol/l (137-146)
[2018-05-13] VITALS (9 sets, daily range): BP systolic 114–158; BP diastolic 54–88
[2018-05-13 11:31] LABS: HEMATOCRIT 41.1 % (37.0-47.0); HEMOGLOBIN 13.1 g/dl (12.0-16.0); IMMATURE GRANULOCYTES 0.4 % (0.0-5.0); MEAN CELL VOLUME 90.1 fL CALC (80.0-100.0); MEAN CORPUSCULAR HGB 28.7 pG CALC (26.0-32.0); MEAN CORPUSCULAR HGB CONC 31.9 g/L CALC (32.0-36.0); NEUT# 14.98 thou/uL (2.00-7.15); RED BLOOD COUNT 4.56 mill/uL (4.20-5.60); RED CELL DISTRI WIDTH 14.4 % (11.5-15.5)
[2018-05-13 11:57] LABS: ANION GAP 18 (6-22 (CALC)); BUN 14 mg/dL (8-23); BUN/CREATININE RATIO 18 (12-20 (CALC)); CARBON DIOXIDE 31 mmol/l (22-30); CHLORIDE 92 mmol/l (95-108); CREATININE 0.8 mg/dL (0.5-1.0); GFR > 60 ML/MIN (>=60 (CALC)); GFR FOR AFR.AMER. > 60 ML/MIN (>=60 (CALC)); SODIUM 138 mmol/l (137-146)
[2018-05-13 11:59] LABS: POTASSIUM 2.5 mmol/l (3.5-5.1)
== END 2018-05-13 11:40 | disposition left against medical advice (07) | DRG 291 ==
LOC: ED 12:42 → ED-I 15:29 → ED 15:52 → ICU 15:53
PROVIDERS: Emergency Medicine; ADMIT Internal Medicine Nephrology; ATTEND Internal Medicine Nephrology
DX: I11.0 Hypertensive heart disease with heart failure (principal); J18.9 Pneumonia, unspecified organism; J44.0 Chronic obstructive pulmonary disease with (acute) lower respiratory infection; J44.1 Chronic obstructive pulmonary disease with (acute) exacerbation; J96.10 Chronic respiratory failure, unspecified whether with hypoxia or hypercapnia; I42.9 Cardiomyopathy, unspecified; I50.9 Heart failure, unspecified; I25.10 Atherosclerotic heart disease of native coronary artery without angina pectoris; I48.2 Chronic atrial fibrillation; M19.90 Unspecified osteoarthritis, unspecified site; G47.00 Insomnia, unspecified; E78.5 Hyperlipidemia, unspecified; F17.210 Nicotine dependence, cigarettes, uncomplicated
CPT/HCPCS: J3475; Q9967

== ENCOUNTER 2018-05-24 15:56 | Emergency (ER) | payer MEDICARE, MEDICAID ==
[~2018-05-24] VITALS: Ht 165.1 cm; Wt 75.0 kg
--- NOTE | 2018-05-24 17:13 | NUR ---
RESPIRATORY OVERHEAD CALLED FOR DIRECT INTUBATION. PATIENT GOT INTUBATED AT 1604 WITH A 7.5 ETT AT 21CM OF THE LIPS. CO2 DETECTOR AND BREATH SOUND AND THEN X-RAY TO VERIFY THE POSITION OF THE TUBE. ABG DRAWN AND ANALYSED. RESULT ON MEDITECH. LOWER FIO2 FROM 100% TO 50% AND VT FROM 550 TO 500.
[2018-05-24 18:06] LABS: HEMATOCRIT 41.9 % (37.0-47.0); HEMOGLOBIN 13.1 g/dl (12.0-16.0); IMMATURE GRANULOCYTES 0.7 % (0.0-5.0); MEAN CELL VOLUME 91.3 fL CALC (80.0-100.0); MEAN CORPUSCULAR HGB 28.5 pG CALC (26.0-32.0); MEAN CORPUSCULAR HGB CONC 31.3 g/L CALC (32.0-36.0); NEUT# 15.74 thou/uL (2.00-7.15); RED BLOOD COUNT 4.59 mill/uL (4.20-5.60); RED CELL DISTRI WIDTH 14.6 % (11.5-15.5)
[2018-05-24 18:20] LABS: ALBUMIN 3.5 g/dL (3.2-5.0); ALKALINE PHOSPHATASE 107 u/l (38-126); ANION GAP 17 (6-22 (CALC)); BUN 20 mg/dL (8-23); BUN/CREATININE RATIO 26 (12-20 (CALC)); CARBON DIOXIDE 30 mmol/l (22-30); CHLORIDE 99 mmol/l (95-108); CREATININE 0.8 mg/dL (0.5-1.0); GFR > 60 ML/MIN (>=60 (CALC)); GFR FOR AFR.AMER. > 60 ML/MIN (>=60 (CALC)); SGOT/AST 83 u/l (9-36); SODIUM 143 mmol/l (137-146); TOTAL PROTEIN 6.8 g/dL (6.3-8.2)
[2018-05-24 18:21] LABS: POTASSIUM 3.2 mmol/l (3.5-5.1)
[2018-05-24 18:22] LABS: PROTHROMBIN TIME 13.4 SECONDS (9.0-12.5)
[2018-05-24 18:23] LABS: INTERNATIONAL NORMALIZED RATIO 1.3 RATIO (0.7-1.3)
[2018-05-24 18:30] LABS: MYOGLOBIN 39 ng/mL (0 - 62)
[2018-05-24 20:08] LABS: URINE BILIRUBIN - DIPSTICK NEGATIVE (NEGATIVE); URINE BLOOD DIPSTICK NEGATIVE (NEGATIVE); URINE COLOR YELLOW; URINE GLUCOSE - DIPSTICK NEGATIVE (NEGATIVE); URINE KETONE NEGATIVE (NEGATIVE); URINE LEUK ESTERASE NEGATIVE (NEGATIVE); URINE NITRITE - DIPSTICK NEGATIVE (Negative); URINE PROTEIN - DIPSTICK 100 mg/dL (NEG-TRACE); URINE SPECIFIC GRAVITY >=1.030; URINE UROBILINOGEN - DIPSTICK 0.2 E.U./dL (0.2)
[2018-05-24 20:09] LABS: URINE CLARITY CLEAR
[2018-05-24 20:16] LABS: URINE RBC 0-2 RBC/hpf (0-5); URINE SQUAMOUS EPITHELIAL CELL FEW EPI/hpf (0-FEW); URINE WBC 0-2 WBC/hpf (0-5)
[2018-05-24 20:50] VITALS: BP 138/86
== END 2018-05-24 20:49 | disposition short-term general hospital (02) ==
LOC: ED 15:56
PROVIDERS: Family Medicine
PROC: 0BH17EZ Insertion of Endotracheal Airway into Trachea, Via Natural or Artificial Opening (ICD-10-PCS; principal; 2018-05-24)
PROC: 02HV33Z Insertion of Infusion Device into Superior Vena Cava, Percutaneous Approach (ICD-10-PCS; 2018-05-24)
PROC: 0T9B70Z Drainage of Bladder with Drainage Device, Via Natural or Artificial Opening (ICD-10-PCS; 2018-05-24)
DX: I11.0 Hypertensive heart disease with heart failure (principal); I50.9 Heart failure, unspecified; R06.03 Acute respiratory distress; I48.91 Unspecified atrial fibrillation; J44.9 Chronic obstructive pulmonary disease, unspecified; I25.2 Old myocardial infarction; F17.200 Nicotine dependence, unspecified, uncomplicated; R74.8 Abnormal levels of other serum enzymes; R07.9 Chest pain, unspecified